=== PATIENT | female | born 1970 | race Caucasian/White ===

== ENCOUNTER 2017-02-07 03:03 | Emergency (ER) | payer MEDICARE ==
[2017-02-07] MEDS ORDERED: LANTUS100 UNITS/ SC (03:36)
[2017-02-07] MEDS ORDERED: LIPITOR40 M1 PO (03:36)
[2017-02-07] MEDS ORDERED: NOVOLOG100 UNITS/ SC ×2 (03:37)
[2017-02-07] MEDS ORDERED: ZESTRIL20 M3 PO (03:37)
[2017-02-07] MEDS ORDERED: PERCOCET 10-321 EACH PO (03:38)
[2017-02-07] MEDS ORDERED: INVOKANA100 MG PO (03:38)
[2017-02-07] MEDS ORDERED: MIRAPEX1 M1 PO (03:40)
[2017-02-07] MEDS ORDERED: AMBIEN10 M1 PO (03:40)
[2017-02-07 04:10] LABS: BASO % 0.5 % (0-2); EOSINOPHIL ABSOLUTE COUNT 0.3 tho/cmm (0.0-0.7); HCT-HEMATOCRIT 40.1 % (34.0-49.0); HGB-HEMOGLOBIN 13.5 gm/dl (12.0-15.5); IMMATURE GRANULOCYTES ABSOLUTE 0.02 tho/cmm (0-0.03); IMMATURE GRANULOCYTES PERCENT 0.2 % (0-0.3); LYMPH % 35.2 % (20-45); LYMPH ABSOLUTE COUNT 3.1 tho/cmm (0.8-4.5); MCHC MEAN CORPUSCULAR HGB CONC 33.7 % (32.0-36.0); MCV (MEAN CELL VOLUME) 83.2 fl (82.0-96.0); MEAN PLATELET VOLUME 9.7 cmc (9.4-12.4); MONO % 6.5 % (0-12); MONOCYTE ABSOLUTE COUNT 0.6 tho/cmm (0.0-1.2); NEUTROPHIL ABSOLUTE COUNT 4.8 tho/cmm (1.6-8.0); NEUTROPHIL-AUTOMATED 4.8 tho/cmm (1.6-8.0); NEUTROPHILS % 54.6 % (40-80); PLATELET COUNT 235 tho/cmm (150-450); RED BLOOD COUNT 4.82 mil/cmm (4.00-5.20); RED CELL DISTRIBUTION WIDTH 13.1 % (12.4-16.4); WHITE BLOOD COUNT 8.8 tho/cmm (4.0-10.0)
[2017-02-07 04:28] LABS: ALB/GLOB RATIO 0.8 (0.8-2.0); ALKALINE PHOSPHATASE 94 U/L (33-138); ALT/SGPT 25 U/L (12-78); ANION GAP 15 mmol/L (0-20); AST/SGOT 11 U/L (10-40); BILIRUBIN,TOTAL 0.2 mg/dl (0-1.5); BLOOD UREA NITROGEN 15 mg/dl (6-24); CALCIUM 8.9 mg/dl (8.5-10.5); CARBON DIOXIDE-VENOUS 26 mmol/L (22-32); CHLORIDE 101 mmol/l (96-110); CREATININE 0.74 mg/dl (0.50-1.10); GLUCOSE 427 mg/dL (70-110); SODIUM 138 mmol/L (135-145); eGFR VALUE FOR BLACK >90 mL/Min
[2017-02-07 04:29] LABS: URINE BILIRUBIN NEGATIVE (NEG); URINE BLOOD MODERATE (NEG); URINE GLUCOSE (UA) LARGE (NEG); URINE KETONE NEGATIVE (NEG); URINE LEUKOCYTE ESTERASE POSITIVE (NEG); URINE NITRITE NEGATIVE (NEG); URINE PH 6.5 (5.0-8.0); URINE PROTEIN MODERATE (NEG)
[2017-02-07 05:00] LABS: URINE APPEARANCE HAZY; URINE COLOR PALE YELLOW
[2017-02-07 05:02] LABS: URINE BACTERIA 2+; URINE EPITHELIAL CELLS 0-3 /[HPF] (0-10)
[2017-02-07] MEDS ORDERED: ZOFRAN4 M2 PO (05:46)
[2017-04-19] MEDS ORDERED: IPRAT-ALBUT 0.5-3 ML AERO NEB (21:57)
[2017-04-19] MEDS ORDERED: TESSALON PERLE100 M1 PO (21:57)
[2017-04-19] MEDS ORDERED: PROVENTIL HFA6.7 G1 INH (21:57)
[2017-04-19] MEDS ORDERED: PREDNISONE20 M1 PO (21:57)
[2017-04-19] MEDS ORDERED: nebulizer (22:00)
[2017-05-17] MEDS ORDERED: BACTRIM DS TAB1 EAC2 PO (17:22)
[2017-05-17] MEDS ORDERED: DIFLUCAN100 M1 PO (17:22)
[2017-05-17] MEDS ORDERED: PERCOCET 5-3251 EACH PO (17:23)
[2017-05-17] MEDS ORDERED: DESENEX43 GM TOP (17:26)
[2017-05-17] MEDS ORDERED: TYLENOL325 M2 PO (17:30)
[2017-05-17] MEDS ORDERED: ACIDOPHILUS LA1 EAC1 PO (17:31)
[2017-05-17] MEDS ORDERED: CULTURELLE1 EAC1 PO (17:32)
[2017-05-17] MEDS ORDERED: COLACE100 M1 PO (17:33)
== END 2017-02-07 06:18 ==
LOC: EDMED 03:03
PROVIDERS: Nurse Practitioner Family
DX: R11.2 Nausea with vomiting, unspecified (principal); R10.11 Right upper quadrant pain; R10.31 Right lower quadrant pain; E11.9 Type 2 diabetes mellitus without complications; I10 Essential (primary) hypertension; Z86.718 Personal history of other venous thrombosis and embolism; Z88.1 Allergy status to other antibiotic agents; Z90.710 Acquired absence of both cervix and uterus; Z90.89 Acquired absence of other organs; Z90.49 Acquired absence of other specified parts of digestive tract; Z98.890 Other specified postprocedural states; F17.210 Nicotine dependence, cigarettes, uncomplicated; Z79.4 Long term (current) use of insulin; Z79.899 Other long term (current) drug therapy
CPT/HCPCS: J1170; J2405; J7030

== ENCOUNTER 2017-02-09 01:39 | Emergency (ER) | payer MEDICARE ==
[~2017-02-09 01:39] MED LIST: AMBIEN10 M1 PO; INVOKANA100 MG PO; LANTUS100 UNITS/ SC; LIPITOR40 M1 PO; MIRAPEX1 M1 PO; NOVOLOG100 UNITS/ SC; PERCOCET 10-321 EACH PO; ZESTRIL20 M3 PO; ZOFRAN4 M2 PO
[2017-02-09] MEDS ORDERED: PERCOCET 5-3251 EACH PO (02:41)
[2017-04-19] MEDS ORDERED: PREDNISONE20 M1 PO (21:57)
[2017-04-19] MEDS ORDERED: TESSALON PERLE100 M1 PO (21:57)
[2017-04-19] MEDS ORDERED: IPRAT-ALBUT 0.5-3 ML AERO NEB (21:57)
[2017-04-19] MEDS ORDERED: PROVENTIL HFA6.7 G1 INH (21:57)
[2017-04-19] MEDS ORDERED: nebulizer (22:00)
[2017-05-17] MEDS ORDERED: BACTRIM DS TAB1 EAC2 PO (17:22)
[2017-05-17] MEDS ORDERED: DIFLUCAN100 M1 PO (17:22)
[2017-05-17] MEDS ORDERED: PERCOCET 5-3251 EACH PO (17:23)
[2017-05-17] MEDS ORDERED: DESENEX43 GM TOP (17:26)
[2017-05-17] MEDS ORDERED: TYLENOL325 M2 PO (17:30)
[2017-05-17] MEDS ORDERED: ACIDOPHILUS LA1 EAC1 PO (17:31)
[2017-05-17] MEDS ORDERED: CULTURELLE1 EAC1 PO (17:32)
[2017-05-17] MEDS ORDERED: COLACE100 M1 PO (17:33)
== END 2017-02-09 02:55 ==
LOC: EDMED 01:39
DX: R10.9 Unspecified abdominal pain (principal); G89.29 Other chronic pain; R11.2 Nausea with vomiting, unspecified; R50.9 Fever, unspecified; E11.9 Type 2 diabetes mellitus without complications; I10 Essential (primary) hypertension; Z90.89 Acquired absence of other organs; Z90.49 Acquired absence of other specified parts of digestive tract; Z90.710 Acquired absence of both cervix and uterus; Z98.890 Other specified postprocedural states; F17.200 Nicotine dependence, unspecified, uncomplicated; Z79.4 Long term (current) use of insulin; Z79.899 Other long term (current) drug therapy